=== PATIENT | female | born 1945 | race Caucasian/White ===

== ENCOUNTER 2017-01-11 08:43 | Emergency (ER) | payer MEDICAID, OTHER ==
[~2017-01-11] VITALS: Ht 154.9 cm; Wt 59.5 kg
[2017-01-11 08:47] VITALS: Ht 154.9 cm; Wt 59.5 kg
[2017-01-11] MEDS ORDERED: AMLO-218 PO (09:54)
[2017-01-11] MEDS ORDERED: NICARDipine HCL 30 MG CAPSULE PO ONE (10:00)
--- NOTE | 2017-01-11 10:00 | ERD ---
ER Documentation Chief Complaint Chief Complaint rt shoulder abcess x 3 years HPI This is a 71-year-old female with a history of a right scapular mass for the past 3 years. She says that is nontender and mobile and is slowly growing over the past 3 years. She states she had a CT scan of it 2 years ago and I told her it would go away. She has no other complaints no headache dizziness and weight loss. The patient was found to be hypertensive in triage and does not take any blood pressure medication. ROS All systems reviewed and are negative except as per history of present illness. Medications Home Meds Active Scripts Amlodipine Besylate* (Norvasc*) 10 Mg Tablet, 10 MG PO QHS for 30 Days, TAB Prov:JACQUI GUEVARA DO 01/11/17 Allergies Allergies: Coded Allergies: No Known Allergy (Unverified , 01/11/17) PMhx/Soc History of Surgery: No Anesthesia Reaction: No Hx Neurological Disorder: No Hx Respiratory Disorders: No Hx Cardiac Disorders: No Hx Psychiatric Problems: No Hx Miscellaneous Medical Probl: No Hx Alcohol Use: No Hx Substance Use: No Hx Tobacco Use: No Smoking Status: Never smoker FmHx Family History: No coronary disease Physical Exam Vitals Vital Signs Date Time Temp Pulse Resp B/P Pulse Ox O2 Delivery O2 Flow Rate FiO2 01/11/17 08:47 98.5 84 18 242/119 99 Physical Exam Const: Well-developed, well-nourished Head: Atraumatic, normocephalic Eyes: Normal Conjunctiva, PERRLA, EOMI, normal sclera, no nystagmus ENT: Normal External Ears, Nose and Mouth, moist mucus membranes. Neck: Full range of motion. No meningismus, no lymphadenopathy. Resp: Clear to auscultation bilaterally, no wheezing, rhonchi, rales Cardio: Regular rate and rhythm, no murmurs, S1 S2 present Abd: Soft, non tender x 4, non distended. Normal bowel sounds, no guarding or rebound, no pulsitile abdominal masses or bruits Skin: No petechiae or rashes, no ecchymosis , no maculopapular rash Back: No midline or flank tenderness, mobile mass located on the right scapula of the size of a tennis ball. There is no fluctuance. Resembles a lipoma Ext: No cyanosis, or edema, FROM x 4, normal inspection, neurovascularly intact x 4 Neur: Awake and alert, STR 5/5 x 4, sensation intact x 4, no focal findings, cerebellum intact Psych: Normal Mood and Affect Results 24 hrs Current Medications Medications (Trade) Dose Ordered Sig/Edson Route PRN Reason Start Time Stop Time Status Last Admin Dose Admin Nicardipine HCl (Cardene) 30 mg ONCE ONCE PO 01/11/17 10:00 01/11/17 10:01 01/11/17 09:48 Procedures/MDM Patient was given Cardene p.o. to lower her blood pressure which was 179/99. We will start Norvasc. Total patient likely has a lipoma but needs an MRI of it to make sure is not a sarcoma or other cancer Departure Diagnosis: Primary Impression: Hypertension Hypertension type: unspecified Qualified Code: I10 - Hypertension, unspecified type Additional Impression: Lipoma Lipoma location: unspecified Qualified Code: D17.9 - Lipoma, unspecified site Condition: Stable Patient Instructions: High Blood Pressure (Hypertension) Additional Instructions: get MRI of mass on back to ensure is a lipoma as soon as possible JACQUI GUEVARA DO Jan 11, 2017 10:00
[2017-01-11 10:38] VITALS: BP 159/87; PULSE 78; RESP 18
== END 2017-01-11 10:49 | disposition home or self-care (01) ==
LOC: E/R 08:43
DX: I10 Essential (primary) hypertension (principal); D17.9 Benign lipomatous neoplasm, unspecified
CPT/HCPCS: Z7502; Z7610; 99283

== ENCOUNTER 2017-03-17 06:45 | Emergency (ER) | END 2017-03-17 12:48 | disposition home or self-care (01) ==

== ENCOUNTER 2017-04-15 22:25 | Inpatient (IN) | END 2017-04-27 17:32 | disposition home or self-care (01) | DRG 64 ==